=== PATIENT | female | born 1935 | race Native Hawaiian/Other Pacific Islander ===

== ENCOUNTER 2017-08-27 10:02 | Outpatient (CLI) | payer OTHER | END 2017-08-27 19:09 | disposition home or self-care (01) | LOC: LABW 10:02 | DX: J40 Bronchitis, not specified as acute or chronic (principal) | CPT/HCPCS: 87070; 87077; 87186; 87205 ==

== ENCOUNTER 2019-06-07 09:22 | Outpatient (CLI) | payer OTHER ==
[~2019-06-07] VITALS: Ht 144.8 cm; Wt 47.2 kg
[2019-06-07 09:42] VITALS: BP 135/51; TEMP 98
== END 2019-06-07 10:40 | disposition home or self-care (01) ==
LOC: INF 09:22
DX: M81.0 Age-related osteoporosis without current pathological fracture (principal)
CPT/HCPCS: 82310; 96372; J0897